=== PATIENT | male | born 1985 | race Caucasian/White ===

== ENCOUNTER 2016-07-06 07:08 | Emergency (ER) | payer MEDICAID ==
[~2016-07-06] VITALS: Ht 177.8 cm; Wt 65.8 kg
[~2016-07-06 07:08] MED LIST: AMOXICOT500 M1 PO; LITHIUM CARBON150 MG PO; MOTRIN 600MG.600 MG PO; PREDNISONE 20MG20 MG PO; TRAZODONE 50MG50 MG PO; ULTRAM50 MG PO; VISTARIL25 M1 PO
[2016-07-06] MEDS ORDERED: NOMEDS XX (07:17)
--- NOTE | 2016-07-06 07:46 | Emergency Room Report ---
History of Present Illness Time Seen by MD [email or web address] Presenting Problem in Triage Pt arrived:Walked Presenting Problem:rash in the webbing of his fingers, his trunk , arms, legs, for about a month Onset of symptoms date/time:/ or onset unknown for:MEDICAL HX UNKNOWN Treatment Prior to Arrival: [employer] Provided by: Sepsis Risk Assessment: Temp: 98.3 B/P: 115/76 MAP: 89 Pulse: 62 Resp: 18 Recent fever? N Clinical Suspician of Infection? N Mental Status: 1 - Regular (Normal Baseline) Sepsis Risk:Low Sepsis Risk Have you (or family members/close friends) recently traveled outside the [place]? N If Yes, where/when: Have you had exposure to infectious disease within the past month? TB? Other? Specify: Source patient, RN notes reviewed, old records Exam Limitations no limitations Comment itchy rash on hands with no blisters Cardiac Chest Pain Chest pain indicative of cardiac No Timing/Duration this morning Severity moderate ALLERGIES Coded Allergies: NO KNOWN ALLERGIES (07/06/16) Home Medications Reported Medications No Home Medications (NO HOME MEDICATIONS) 1 EACH XX ONCE No Home Medications (NO HOME MEDICATIONS) 1 EACH XX ONCE History Medical History General CAD? No Angina: No [place]: No Hypertension? No Hyperlipidemia? No CHF? No COPD? No Asthma? No Anemia? No Hernia? No Thyroid Problems? No Hypothyroidism? No CVA? No Seizures? No Diabetes? No End Stage Renal Disease? No UTI? No Stones? No GB Disease: No Nephritic Syndrome? No Asplenia? No Hepatitis? No Sickle Cell Disease? No Arthritis? No Cataracts? No Glaucoma? No MRSA? No TB? No Cancer? No Immunization Hx Ped.Immunizations UTD Yes DT/Tetanus 5-10 YRS Surgical Hx Previous Surgery?Y EYE BILAT Tonsils Social History Smoking Hx Smoker: Current Every Day Smoker Tobacco: Yes Type Cigarettes Packs/day < 1 Pack Alcohol Alcohol: No Drugs none Review of Systems All Other Systems Reviewed and Negative Constitutional denies fever Eyes denies drainage ENT denies: ear pain, epistaxis, throat pain. Respiratory denies cough, denies shortness of breath, denies wheezing Cardiovascular denies chest pain, denies palpitations, denies syncope Gastrointestinal denies abdominal pain, denies diarrhea, denies vomiting Genitourinary denies: dysuria, frequency, hesitancy, hematuria. Musculoskeletal denies back pain, denies joint pain, denies joint swelling, denies neck pain Skin see HPI, rash Psychiatric/Neurological denies headache, denies seizure Physical Exam Vital Signs Vital Signs Date Time Temp Pulse Resp B/P Pulse O2 O2 Flow FiO2 Ox Delivery Rate 07/06 0715 97.8 62 18 115/76 98 - WBC >12,000 or <4,000 or 10% bands? 2 or more SIRS Criteria Met? B/P:115/76 MAP:89 Creatinine >2.0? UA output<0.5ml/kg/hr for 2 hrs? Platelet count >100,000? Lactate >2.0mmol/1? INR >1.2 or PTT > than 60 sec? Evidence of Organ Dysfunction? Provider documented clinical suspician of infection? N Sepsis Criteria Count: 0 Sepsis Risk: Low Sepsis Risk General Appearance no apparent distress Eye Exam - bilateral eye PERRL, bilateral eye EOMI Ear, Nose, Throat normal ENT inspection Neck supple Respiratory Status No: respiratory distress. 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 No Departure Departure Time of Disposition 0742 Disposition DC Home or Self Care(routine) Clinical Impression Primary Impression: Dermatitis Condition STABLE Referrals NO REFERRAL (Family) Patient Instructions DI for Contact Dermatitis Additional Instructions use meds and see pcp for follow up Discharge Counseling Counseled pt/family regarding diagnosis, medications/RX, follow up needs ED Critical Care Critical Care No at 0745
[2016-07-06 07:49] VITALS: BP 115/76
== END 2016-07-06 07:53 | disposition home or self-care (01) ==
LOC: ER 07:08
DX: L25.9 Unspecified contact dermatitis, unspecified cause (principal); Z72.0 Tobacco use